=== PATIENT | male | born 2000 | race Caucasian/White ===

== ENCOUNTER 2023-05-25 20:54 | Emergency (ER) | payer OTHER ==
[2023-05-25 21:05] VITALS: BMI 26.4
[2023-05-25] MEDS ORDERED: KETOROLAC TROMETHAMINE 15 MG/ML VIAL IM ONE (22:04)
[2023-05-25] MEDS ORDERED: KETOROLAC TROMETHAMINE 15 MG/ML VIAL ONE (22:14)
[2023-05-25 22:40] LABS: BASO % 0.5 % (0-2.0); HEMATOCRIT 43.2 % (35.4-49); HEMOGLOBIN 14.5 GM/dL (11.7-16.9); LYMPH % 16.6 % (8-40); MCH 29.1 pg (25.7-33.7); MCHC 33.6 g/dl (32.0-35.9); MEAN CELL VOLUME 86.7 fl (80-96); MEAN PLT VOLUME 8.8 fl (7.5-11.1); NEUT % 71.9 % (42.8-82.8); PLATELET COUNT 307 10^3/uL (134-434); RBC 4.98 M/mm3 (4.00-5.60); RDW 13.8 % (11.9-15.9); WHITE BLOOD COUNT 10.3 K/mm3 (4.0-10.0)
[2023-05-25 22:55] LABS: BLOOD UREA NITROGEN 13.5 mg/dL (7-18); CALCIUM 9.5 mg/dL (8.5-10.1)
[2023-05-25 22:58] LABS: CREATININE 0.9 mg/dL (0.55-1.3)
[2023-05-25 23:00] LABS: BILIRUBIN,TOTAL 0.2 mg/dL (0.2-1); TOT PROT 8.5 g/dl (6.4-8.2)
[2023-05-26 02:05] VITALS: BP 118/72; PULSE 62; RESP 16; TEMP 97.9
== END 2023-05-26 02:05 | disposition home or self-care (01) ==
LOC: JER 20:54
PROC: 3E0333Z Introduction of Anti-inflammatory into Peripheral Vein, Percutaneous Approach (ICD-10-PCS; principal; 2023-05-25)
DX: M79.605 Pain in left leg (principal); M54.2 Cervicalgia; M25.531 Pain in right wrist; M79.631 Pain in right forearm; V49.50XA Passenger injured in collision with unspecified motor vehicles in traffic accident, initial encounter; Y93.I9 Activity, other involving external motion
CPT/HCPCS: 36415; 70450-TC; 71260-TC; 72125-TC; 73090-TC-RT-FY; 73110-TC-RT-FY; 73562-TC-RT-FY; 73590-TC-RT-FY; 73700-TC-RT; 74177-TC; 80053; 85025; 86850; 86900; 86901; 99285-25; Q9967